=== PATIENT | male | born 1990 | race Caucasian/White ===

== ENCOUNTER 2021-04-16 09:32 | Emergency (ER) | payer OTHER, SELFPAY ==
[2021-04-16 09:37] VITALS: BP 140/71; PULSE 88; RESP 16; TEMP 36.4; O2SAT 100
--- NOTE | 2021-04-16 09:52 | ED.GENADUL_ITS ---
Discharge Plan Disposition Patient Disposition: HOME Condition: Stable Discharge Details Chief Complaint: Laceration Clinical Impression: Laceration of left wrist Primary Care Provider: None,None ED Provider: Jeremy Sellers Home Meds and New Rx's Prescriptions: No Action No Known Home Meds RF: 0 Discharge Instructions Instructions: Laceration (ED) Additional Instructions: return in 7 days for evaluation for possible suture removal. Return sooner if signs of infection such as spreading redness or yellow/white discharge from the wound Medical Decision Making 30 yo male with no chronic medical problems who states he had a tetanus shot 3 years ago comes in with left wrist laceration. He was a work doing woodworking. He was using a putty knife he states was very clean when it slipped and cut his left radial sideo f his wrist. No falls or other injuries. He has a 3cm laceration in the area that is superficial. No bleeding on my exam. Has full range of motion of the wrist and fingers and normal senasiton and cap refill, will requires sutures and no findings to suggest neurovascular injury or tendon injury and no foreign body on exam nor bony tenderness so do not feel xray indicated. wound irrigated and closed with 5 sutures without complication, will d/c and advised to return in 7 days for evaluation for suture removal and sooner if signs of wound infection Differential Diagnosis Differential Diagnosis: laceration, abrasion HPI General Mode of arrival: ambulatory . Date/Time Provider Initiated Documentation: 04/16/21 09:33 . Limitations to Documentation: no limitations . Information obtained by: patient . History of Present Illness 30 year old M presents to the emergency department with the chief complaint of left wrist laceration, described as moderate, Quality is described as aching, and is localized to the left and upper extremity. Patient reports no radiation. Patient started experiencing this hour(s) (1) and it has been constant. No relieving factors improve symptom(s), No exacerbating factors reported . Patient notes no other symptoms.. Patient did receive the following treatments prior to arrival, none Related Data Home Medications Medication Instructions Recorded Confirmed Unknown [No Known Home Meds] 04/16/21 04/16/21 Allergies Allergy/AdvReac Type Severity Reaction Status Date / Time No Known Allergies Allergy Unverified 04/16/21 09:42 General Stated Complaint: Laceration VIVEK: 4 Review of Systems All systems reviewed & are unremarkable except as noted in HPI and below Constitutional Constitutional: Denies chills, Denies fever(s) and Denies weakness Cardiovascular Cardiovascular: Denies chest pain and Denies dyspnea Respiratory Respiratory: Denies cough and Denies dyspnea Gastrointestinal Gastrointestinal: Denies abdominal pain, Denies nausea and Denies vomiting Musculoskeletal Musculoskeletal: Denies joint swelling Neurologic Neurologic: Denies weakness [facility] Active Problem List (Updated 04/16/21 @ 10:15 by Jeremy Sellers MD) Laceration of left wrist (Acute) Social History Smoking/Tobacco Use Status: Current every day Tobacco Type: cigarettes Smoking risk assessment performed?: Yes Substance use type: does not use Exam Const General: no acute distress Orientation: alert HENMT Head: normal to inspection Ears: external ears normal General nose exam: external nose normal Mouth: moist mucous membranes Eyes General: appearance normal, both eyes and all related structures Neck Neck: normal visual inspection Resp Effort & Inspection: normal respiratory effort and able to speak in complete sentences Cardio Rate: regular rate Skin General skin exam: no rashes or lesions noted Neuro General: patient alert and patient oriented x3 Extrem General: full ROM and capillary refill normal Psych Mental Status: mental status grossly normal Course Vital Signs Vital signs: Vital Signs Temperature 36.4 C L 04/16/21 09:37 Pulse 88 04/16/21 09:37 Respiratory Rate 16 04/16/21 09:37 Blood Pressure 140/71 04/16/21 09:37 Pulse Oximetry 100 04/16/21 09:37 Temperature 36.4 C L 04/16/21 09:37 Temperature Source Skin 04/16/21 09:37 Pulse 88 04/16/21 09:37 Respiratory Rate 16 04/16/21 09:37 Respiratory Effort Non-Labored 04/16/21 09:37 Blood Pressure 140/71 04/16/21 09:37 Blood Pressure Position Sitting 04/16/21 09:37 Pulse Oximetry 100 04/16/21 09:37 Oxygen Delivery Method Room Air 04/16/21 09:37 Oxygen Flow Rate 0 04/16/21 09:37 Pain Level 1 04/16/21 09:37 Procedures Laceration Laceration 1: Site: upper extremity Side (If applicable): left Size (cm): 3 Description: linear Depth: simple, single layer Local Anesthetic: Lidocaine 1% and with Epi Amount of anesthesia used (mL): 6 Pre-repair: wound explored and irrigated extensively Skin layer closed with: nylon Size (cm): 5-0 Number of sutures: 5 Technique: simple, interrupted
[2021-04-16] MEDS: Bacitracin 1 PACKET (10:36)
== END 2021-04-16 10:30 | disposition home or self-care (01) ==
PROVIDERS: Emergency Provider Emergency Medicine
DX: S61.512A Laceration without foreign body of left wrist, initial encounter (principal); W26.0XXA Contact with knife, initial encounter; Y99.0 Civilian activity done for income or pay
CPT/HCPCS: 12002

== ENCOUNTER 2024-09-16 16:31 | Emergency (ER) | payer SELFPAY ==
[2024-09-16 16:34] VITALS: BP 126/80; PULSE 93; RESP 18; TEMP 36.6; O2SAT 98
[2024-09-16 16:39] VITALS: BP 126/80; PULSE 93; RESP 18; TEMP 36.6; O2SAT 98
[2024-09-16] MEDS: Amox. 875/Clav. 125, 2 TABS/BTL 1 TAB PO (17:24)
[2024-09-16] MEDS: Lidocaine 2% Viscous 15 ML CUP PO (17:24)
--- NOTE | 2024-09-16 22:54 | ED.GENADUL_ITS ---
Discharge Plan Disposition Patient Disposition: Home Discharge Details Clinical Impression: Gingivitis Primary Care Provider: None,None ED Provider: Nichol Park Home Meds and New Rx's Prescriptions: New amoxicillin-pot clavulanate 875-125 mg tablet 1 tab PO BID Qty: 18 0RF chlorhexidine gluconate 0.12 % mouthwash 15 ml buccal BID Qty: 1893 0RF lidocaine HCl 4 % (40 mg/mL) solution 1 applic mucous membrane TID PRNQty: 50 0RF Rx Instructions: swish and spit 2.5-5ml three times daily as needed for pain Discharge Instructions Instructions: Periodontal Disease Treatment (DC) Additional Instructions: Schedule an appointment to meet with a dentist, you may want to wait at least 2 weeks so the inflammation decreases Do not floss your teeth until the swelling decreases Use the chlorhexidine rinse twice daily You may use the lidocaine as prescribed to help with the pain Take the antibiotic as prescribed Return earlier with fever, chills, or should you develop any new or worsening complaints Discharge Data Discharge Date/Time-TO BE ENTERED AT DEPARTURE: 09/16/24 17:29 HPI General Date/Time Provider Initiated Documentation: 09/16/24 16:51 . HPI Narrative: The patient is a 33-year-old male with widespread dental decay and gingival pain for 4 days. He does not have a regular dentist and admits to poor oral hygiene. He denies difficulty swallowing, fever, chills, trauma, chest pain, or shortness of breath. Related Data Home Medications ?Medication ?Instructions ?Recorded ?Confirmed amoxicillin 875 mg-potassium 1 tab PO BID #18 tabs 09/16/24 clavulanate 125 mg tablet chlorhexidine gluconate 0.12 % 15 ml buccal BID #1,893 mL 09/16/24 mouthwash lidocaine HCl 4 % (40 mg/mL) 1 applic mucous membrane TID PRN 09/16/24 mucosal solution #50 mL Previous Rx's ?Medication ?Instructions ?Recorded amoxicillin 875 mg-potassium 1 tab PO BID #18 tabs 09/16/24 clavulanate 125 mg tablet chlorhexidine gluconate 0.12 % 15 ml buccal BID #1,893 mL 09/16/24 mouthwash lidocaine HCl 4 % (40 mg/mL) 1 applic mucous membrane TID PRN 09/16/24 mucosal solution #50 mL Allergies Allergy/AdvReac Type Severity Reaction Status Date / Time No Known Allergies Allergy Unverified 09/16/24 16:38 General Stated Complaint: DentalOral VIVEK: 4 Exam Narrative Exam Narrative: General Appearance: Patient is alert and oriented, speaking in complete sentences. Vital signs: Afebrile and nontoxic. HEENT: Widespread gingivitis with bleeding gums and erythema. Plaque present. Oropharynx patent, uvula midline. Respiratory: Within normal limits. Skin: Warm and dry, no rash. Neurological: Normal. Course Vital Signs Vital signs: Vital Signs Temperature 36.6 C 09/16/24 16:34 Pulse 93 H 09/16/24 16:34 Respiratory Rate 18 09/16/24 16:34 Blood Pressure 126/80 09/16/24 16:34 Pulse Oximetry 98 09/16/24 16:34 Temperature 36.6 C 09/16/24 16:39 Temperature Source Temporal Artery Scan 09/16/24 16:39 Pulse 93 H 09/16/24 16:39 Respiratory Rate 18 09/16/24 16:39 Blood Pressure 126/80 09/16/24 16:39 Blood Pressure Position Sitting 09/16/24 16:39 Pulse Oximetry 98 09/16/24 16:39 Pain Level 8 09/16/24 17:26 Medical Decision Making Initial Assessment: 33-year-old male with widespread dental decay and gingival pain for the past 4 days. Denies difficulty swallowing, fever, chills, trauma, chest pain, or shortness of breath. On arrival, patient is alert and oriented, speaking in complete sentences. Widespread gingivitis with bleeding gums and erythema. Widespread plaque. Oropharynx patent. Uvula midline. Afebrile, nontoxic. No evidence of Efraín's angina. ED Course: - Initiate Augmentin and chlorhexidine rinses. - Provide viscous lidocaine to swish and spit for pain control. - Recommend Motrin and Tylenol as needed for pain. - Advise dental appointment for deep cleaning in the next couple of weeks. - Several referrals given. - Reviewed return precautions; patient understands. Final Assessment: Patient with severe gingivitis requiring antibiotics and pain control. No evidence of Efraín's angina. Treatment initiated with Augmentin, chlorhexidine rinses, and viscous lidocaine. Pain management with Motrin and Tylenol recommended. Dental follow-up advised. Clinical Impression: - Severe gingivitis Disposition: - Discharge - Follow-Up: Dental appointment for deep cleaning in the next couple of weeks. Several referrals given. Patient Education: Reviewed return precautions; patient understands. MDM Components Evaluation: - Number of Differential Diagnoses or Management Options: Severe gingivitis, Efraín's angina - Amount and Complexity of Data Reviewed: Physical examination findings - Risk of Complication and Morbidity or Mortality: Low risk given afebrile and nontoxic presentation, no evidence of Efraín's angina. Quality:SDOH Health Related Social Needs: No Data to Display PFSH All Active Problems (Updated 09/16/24 @ 17:13 by SCOTT Guadarrama) Gingivitis (Acute) Laceration of left wrist (Acute) Social History Smoking/Tobacco Use Status: Current every day Tobacco Type: cigarettes Smoking risk assessment performed?: Yes Drug use: Never Substance use type: does not use Do you feel safe at home: Yes Do you feel safe in your relationship?: Yes PAWSS Have you Been Recently Intoxicated or Drunk Within the Last 30 days?: No Have you Ever Experienced Previous Episodes of Alcohol Withdrawal?: No Have you ever Experienced Withdrawal Seizures?: No Have you ever Experienced Delirium Tremens(DT)s?: No Have you ever undergone Alcohol Rehabilitation Treatment (i.e, inpt ot outpatient treatment programs)?: No Have you ever Experienced Blackouts?: No Have you ever Combined Alcohol with other Downers within the last 90 days?: No Have you ever Combined Alcohol with any other Substance of Abuse during the last 90 days?: No Positive Blood Alcohol level on Presentation? [PCS.BAL]: No Evidence of Increased Autonomic Activity (i.e. HR>120, tremor, sweating, agitation, nausea)?: No Result: 0
== END 2024-09-16 17:29 | disposition home or self-care (01) ==
LOC: ER 17:41
PROVIDERS: Emergency Provider Physician Assistant
DX: K02.9 Dental caries, unspecified (principal); K05.10 Chronic gingivitis, plaque induced
CPT/HCPCS: 99283